=== PATIENT | male | born 1970 | race Caucasian/White ===

== ENCOUNTER → 2024-10-08 18:56 | Outpatient (REF) | payer OTHER, SELFPAY | LOC: RAD 18:56 | PROVIDERS: ATTENDING PHYSICIAN Chiropractor | DX: S13.4XXA Sprain of ligaments of cervical spine, initial encounter (principal); S33.8XXA Sprain of other parts of lumbar spine and pelvis, initial encounter | CPT/HCPCS: 72050; 72110 ==